=== PATIENT | male | born 1950 ===

== ENCOUNTER 2020-12-15 08:00 | Outpatient (CLI) | payer OTHER ==
--- NOTE | 2020-12-15 12:21 | XRAY Report ---
PROCEDURE: Chest 2 View X-Ray INDICATIONS: COUGH TECHNIQUE: 2 view(s) of the chest. COMPARISON: None. FINDINGS: Surgical changes and devices: None. Lungs and pleura: No pleural effusions or pneumothorax. Lungs are clear. Mediastinum: Mildly tortuous thoracic aorta is seen. Heart size is normal. Bones and chest wall: No suspicious bony abnormalities. Soft tissues appear unremarkable. IMPRESSION: No acute cardiopulmonary pathology. Reviewed by: Andrew Barboza MD on 12/15/2020 12:20 PM PDT Approved by: Andrew Barboza MD on 12/15/2020 12:20 PM PDT Station ID: [id number]
== END 2020-12-15 23:59 | disposition home or self-care (01) ==
LOC: DI.S 08:00
PROVIDERS: ATTEND Physician Assistant Medical
DX: R05 Cough (principal)